=== PATIENT | male | born 1965 | race African-American/Black ===

== ENCOUNTER 2017-03-10 09:57 | Emergency (ER) | payer OTHER ==
[~2017-03-10] VITALS: Ht 180.3 cm; Wt 94.5 kg
[2017-03-10 10:50] LABS: EOSINOPHIL (%) 0.8 % (0-5); EOSINOPHIL COUNT 0.1 K/uL (0-0.3); HEMATOCRIT 42.2 % (38.0-50.0); IMMATURE GRANULOCYTE (%) 0.2 % (0.0-0.7); INSTRUMENT ABS NEUTROPHIL CT 3.7 K/uL; LYMPHOCYTE COUNT 1.7 K/uL (1.0-2.8); MCH 25.3 PG (29.0-34.0); MCHC 32.5 G/DL (30.0-36.0); MONOCYTE (%) 7.5 % (3-12); MONOCYTE COUNT 0.4 K/uL (0-0.8); NEUTROPHIL (%) 63.2 % (45-76); NEUTROPHIL COUNT 3.7 K/uL (1.8-6.4); PLATELET COUNT 305 K/uL (156-360); RBC DIS.WIDTH-CV 13.6 % (11.8-14.6); RBC DIS.WIDTH-SD 38.5 % (39-53); RED BLOOD COUNT 5.41 M/uL (4.00-5.50); WHITE BLOOD COUNT 5.9 K/uL (4.1-10.2)
[2017-03-10 11:02] LABS: CHLORIDE 107 mEq/L (99-109); SODIUM 141 mEq/L (136-147)
[2017-03-10 11:05] LABS: GLUCOSE 103 mg/dL (70-99)
[2017-03-10 11:06] LABS: ANION GAP 9 MEQ/L (2-14)
[2017-03-10 11:07] LABS: TOTAL BILIRUBIN 0.6 mg/dL (0.0-1.0)
[2017-03-10 11:08] LABS: ALKALINE PHOSPHATASE 83 IU/L (3-129)
[2017-03-10 11:09] LABS: GFR ESTIMATE (CALCULATED) > 59 mL/min/ (58.99-99999)
[2017-03-10 11:10] LABS: UREA NITROGEN (BUN) 7 mg/dL (9-23)
[2017-03-10 11:12] LABS: LIPASE 24 U/L (1.0-51.0)
[2017-03-10] MEDS ORDERED: CIPRO500 MG PO (14:09)
[2017-03-10] MEDS ORDERED: FLAGYL500 MG PO (14:09)
[2017-03-10] MEDS ORDERED: PERCOCET 5/31 TABLET PO (14:56)
[2017-03-10 14:58] VITALS: BP 132/84
== END 2017-03-10 15:16 ==
LOC: EME 09:57
PROVIDERS: Emergency Medicine
DX: K52.9 Noninfective gastroenteritis and colitis, unspecified (principal); Z87.891 Personal history of nicotine dependence
CPT/HCPCS: 74177; 80053; 81003; 83690; 85025; 99281; 99285; J2270; J2405; J7030